=== PATIENT | male | born 1975 | race Caucasian/White ===

== ENCOUNTER 2021-02-10 18:59 | Inpatient (IN) | payer BC ==
[2021-02-10 21:46] LABS: Absolute Lymphocytes (CBC) 1.2 K/uL (0.7-4.9); Basophils % 0.5 % (0-1.3); Lymphocytes % 10.9 % (15.3-44.8); MPV 8.1 fL (7.6-11.3); RBC Red Blood Cell Count 5.86 M/uL (4.33-5.43)
[2021-02-10] MEDS ORDERED: MORPHINE 4 MG/ML SYR ONE (21:49)
[2021-02-10] MEDS ORDERED: ONDANSETRON 4 MG/2 ML VIAL ONE (21:50)
[2021-02-10] MEDS ORDERED: NA CHLORIDE 0.9% 1,000 ML ONE (21:50)
[2021-02-10 22:05] LABS: Albumin 4.5 g/dL (3.4-5.0); Bilirubin Direct 0.1 mg/dL (0-0.2); Bilirubin Total 0.6 mg/dL (0.2-1.0); Potassium 4.1 mmol/L (3.5-5.1); Protein, Total 8.4 g/dL (6.4-8.2)
[2021-02-10 22:09] LABS: Urine Blood 2+ (Negative); Urine Glucose Negative (Negative); Urine Protein 2+ (Negative); Urine Specific Gravity >=1.030 (1.005-1.030)
[2021-02-10] MEDS ORDERED: FENTANYL CITR 100 MCG/2 ML ONE (23:19)
--- NOTE | 2021-02-11 00:55 | ER ---
Nurse's Notes [facility] Name: Oliver Crespo Age: 45 yrs Sex: Male : 1975 Arrival Date: 02/10/2021 Time: 19:03 Bed 13 Private MD: Diagnosis: Small Bowel Obstruction Presentation: 02/10 20:08 Chief complaint: Patient states: Sever generalized ABD pain, shortness of breath, NVD, vg1 that started x3 days ago. Coronavirus screen: Client denies travel out of the [place] in the last 14 days. Ebola Screen: Patient negative for fever greater than or equal to 101.5 degrees Fahrenheit, and additional compatible Ebola Virus Disease symptoms. Initial Sepsis Screen:. Initial Sepsis Screen: Does the patient meet any 2 criteria? No. Patient's initial sepsis screen is negative. Does the patient have a suspected source of infection? No. Patient's initial sepsis screen is negative. Risk Assessment: Do you want to hurt yourself or someone else? Patient reports no desire to harm self or others. Onset of symptoms was February 07, 2021. 20:08 Method Of Arrival: Ambulatory vg1 20:08 Acuity: KAILASH 3 vg1 Historical: - Allergies: 20:14 No Known Allergies; vg1 - PMHx: 20:14 High Cholesterol; Hypertension; kidney cancer; vg1 - Immunization history:: Adult Immunizations up to date. - Social history:: Smoking status: Patient reports the use of cigarette tobacco products, smokes one-half pack cigarettes per day. Screenin:40 Abuse screen: Denies threats or abuse. Denies injuries from another. Nutritional rr5 screening: No deficits noted. Tuberculosis screening: No symptoms or risk factors identified. Fall Risk IV access (20 points). Total Melton Fall Scale indicates No Risk (0-24 pts). Assessment: 21:30 General: Appears in no apparent distress. comfortable, Behavior is calm, cooperative, rr5 appropriate for age. 21:30 Pain: Complains of pain in abdomen Pain currently is 10 out of 10 on a pain scale. rr5 Quality of pain is described as aching, Pain began gradually, Is intermittent. Neuro: Level of Consciousness is awake, alert, obeys commands, Oriented to person, place, time. Cardiovascular: Capillary refill < 3 seconds Patient's skin is warm and dry. Respiratory: Airway is patent Respiratory effort is even, unlabored, Respiratory pattern is regular, symmetrical. GI: Abdomen is round non-distended, Abd is soft and non tender Reports lower abdominal pain, upper abdominal pain, nausea, vomiting. : No signs and/or symptoms were reported regarding the genitourinary system. EENT: No signs and/or symptoms were reported regarding the EENT system. Derm: Skin is intact, is healthy with good turgor, Skin temperature is warm. Musculoskeletal: Capillary refill < 3 seconds. 22:40 Reassessment: Patient appears in no apparent distress at this time. Patient is alert, rr5 oriented x 3, equal unlabored respirations, skin warm/dry/pink. still in pain, ED provider aware with order made and carried out. 02/11 00:00 Reassessment: Patient appears in no apparent distress at this time. Patient is alert, rr5 oriented x 3, equal unlabored respirations, skin warm/dry/pink. awaiting for CT result. Vital Signs: 02/10 20:08 BP 183 / 122; Pulse 115; Resp 18; Temp 98.4(O); Pulse Ox 99% on R/A; Weight 99.79 kg; vg1 Height 5 ft. 11 in. (180.34 cm); Pain 10/10; 22:20 BP 142 / 95; Pulse 98; Resp 17; Pulse Ox 98% ; rr5 23:00 BP 141 / 90; Pulse 90; Resp 16; Pulse Ox 99% ; Pain 7/10; rr5 02/11 00:00 BP 155 / 95; Pulse 95; Resp 18; Pulse Ox 98% ; Pain 7/10; rr5 02:52 BP 158 / 78; Pulse 94; Resp 16; Pulse Ox 98% ; jm8 02/10 20:08 Body Mass Index 30.68 (99.79 kg, 180.34 cm) vg1 ED Course: 02/10 19:03 Patient arrived in ED. bp1 20:13 Triage completed. vg1 20:14 Arm band placed on Patient notified of wait time Emesis basin given. vg1 21:12 David Bautista PA is PHCP. jmm 21:12 Jose Moore MD is Attending Physician. jmm 21:16 Cirilo Lanier RN is Primary Nurse. rr5 21:30 Patient has correct armband on for positive identification. Bed in low position. Call rr5 light in reach. 21:40 Inserted saline lock: 20 gauge in right antecubital area, using aseptic technique. rr5 Blood collected. 02/11 00:54 Kareem Sapnn is Hospitalizing Provider. jmm 01:18 NGT: inserted 16 Fr. via left nare. verified placement of air over stomach, verified jm8 return of gastric contents, to intermittent suction. Returned gastric contents. Patient tolerated well. 02:53 Report given to Michelle MORALEZ 2nd floor. jm8 02:53 No provider procedures requiring assistance completed. jm8 03:42 Patient admitted, IV remains in place. jm8 Administered Medications: 02/10 21:40 Drug: NS 0.9% 1000 ml Route: IV; Rate: 1 bolus; Site: right antecubital; rr5 23:04 Follow up: Response: No adverse reaction; IV Status: Completed infusion; IV Intake: rr5 1000ml 21:40 Drug: Zofran (Ondansetron) 4 mg Route: IVP; Site: right antecubital; rr5 22:40 Follow up: Response: No adverse reaction rr5 21:42 Drug: morphine 4 mg {Note: rass 0.} Route: IVP; Site: right antecubital; rr5 22:40 Follow up: Response: No adverse reaction; Pain is unchanged, physician notified; RASS: rr5 Alert and Calm (0) 23:04 Drug: fentaNYL (PF) 50 mcg {Note: rass 0.} Route: IVP; Site: right antecubital; rr5 02/11 00:00 Follow up: Response: No adverse reaction; RASS: Alert and Calm (0) rr5 01:35 Drug: fentaNYL (PF) 50 mcg {Note: rass 0.} Route: IVP; Site: right antecubital; rr5 02:54 Follow up: Response: No adverse reaction; Pain is decreased jm8 01:35 Drug: Phenergan (promethazine) 12.5 mg Route: IVP; Site: right antecubital; rr5 02:55 Follow up: Response: No adverse reaction; Pain is decreased jm8 Intake: 02/10 23:04 IV: 1000ml; Total: 1000ml. rr5 Outcome: 02/11 00:55 Decision to Hospitalize by Provider. jmm 03:42 Admitted to Med/surg accompanied by nurse, via wheelchair, with chart, Report called to mayelin Trujillo 03:42 Condition: good 03:42 Instructed on the need for admit. 03:43 Patient left the ED. mayelin Signatures: David Bautista PA PA jmm Roque, Raymond, RN RN rr5 Erin Rm RN RN vg1 Emma Hale Joseph, RN RN [email or web address] Corrections: (The following items were deleted from the chart) 02/10 20:14 20:08 Acuity: KAILASH 2 vg1 vg1 20:18 20:08 Chief complaint: Patient states: Sever generalized ABD pain, NVD, that started x3 vg1 days ago. vg1
--- NOTE | 2021-02-11 00:56 | EDPHYS ---
Physician Documentation [facility] Name: Oliver Crespo Age: 45 yrs Sex: Male : 1975 Arrival Date: 02/10/2021 Time: 19:03 Bed 13 Private MD: Jose Singer HPI: 02/10 21:16 This 45 yrs old Male presents to ER via Ambulatory with complaints of jmm Abdominal Pain, Nausea/Vomiting/Diarrhea. 21:16 The patient presents with abdominal pain. Onset: The symptoms/episode began/occurred 3 jmm day(s) ago. The symptoms do not radiate. Associated signs and symptoms: Pertinent positives: nausea and vomiting, diarrhea. The symptoms are described as achy. Modifying factors: The symptoms are alleviated by nothing, the symptoms are aggravated by nothing. The patient has not experienced similar symptoms in the past. Historical: - Allergies: 20:14 No Known Allergies; vg1 - PMHx: 20:14 High Cholesterol; Hypertension; kidney cancer; vg1 - Immunization history:: Adult Immunizations up to date. - Social history:: Smoking status: Patient reports the use of cigarette tobacco products, smokes one-half pack cigarettes per day. ROS: 21:16 Constitutional: Negative for fever, chills, and weight loss, Cardiovascular: Negative jmm for chest pain, palpitations, and edema, Respiratory: Negative for shortness of breath, cough, wheezing, and pleuritic chest pain. 21:16 Abdomen/GI: Positive for abdominal pain, nausea and vomiting, diarrhea. 21:16 All other systems are negative. Exam: 21:16 Constitutional: This is a well developed, well nourished patient who is awake, alert, jmm and in no acute distress. Head/Face: atraumatic. Eyes: EOMI, no conjunctival erythema appreciated ENT: Moist Mucus Membranes Neck: Trachea midline, Supple Chest/axilla: Normal chest wall appearance and motion. Cardiovascular: Regular rate and rhythm. No edema appreciated Respiratory: Normal respirations, no respiratory distress appreciated 21:16 Back: Normal ROM Skin: General appearance color normal MS/ Extremity: Moves all extremities, no obvious deformities appreciated, no edema noted to the lower extremities Neuro: Awake and alert, normal gait Psych: Behavior is normal, Mood is normal, Patient is cooperative and pleasant 21:16 Abdomen/GI: Inspection: abdomen appears normal, Bowel sounds: normal, Palpation: soft, moderate abdominal tenderness. Vital Signs: 20:08 BP 183 / 122; Pulse 115; Resp 18; Temp 98.4(O); Pulse Ox 99% on R/A; Weight 99.79 kg; vg1 Height 5 ft. 11 in. (180.34 cm); Pain 10/10; 22:20 BP 142 / 95; Pulse 98; Resp 17; Pulse Ox 98% ; rr5 23:00 BP 141 / 90; Pulse 90; Resp 16; Pulse Ox 99% ; Pain 7/10; rr5 02/11 00:00 BP 155 / 95; Pulse 95; Resp 18; Pulse Ox 98% ; Pain 7/10; rr5 02:52 BP 158 / 78; Pulse 94; Resp 16; Pulse Ox 98% ; jm8 02/10 20:08 Body Mass Index 30.68 (99.79 kg, 180.34 cm) vg1 MDM: 02/10 21:18 Patient medically screened. [facility] 02/11 00:47 Data reviewed: vital signs, nurses notes. Counseling: I had a detailed discussion with aviva the patient and/or guardian regarding: the historical points, exam findings, and any diagnostic results supporting the discharge/admit diagnosis, lab results, radiology results, the need for further work-up and treatment in the hospital. 00:51 Data reviewed: radiologic studies, CT scan. ED course: I discussed the patient with Dr. aviva Montoya and Richard Wilson PA-C. Will admit to Dr. Spann's service.. 02/10 21:17 Order name: Basic Metabolic Panel [facility] 02/10 21:17 Order name: CBC with Diff [facility] 02/10 21:17 Order name: Hepatic Function [facility] 02/10 21:17 Order name: Lipase [facility] 02/10 21:47 Order name: CBC with Automated Diff; Complete Time: 21:54 EDMS 02/10 22:05 Order name: Basic Metabolic Panel; Complete Time: 22:10 EDNC 02/10 22:06 Order name: Liver (Hepatic) Function; Complete Time: 22:10 EDNC 02/10 22:06 Order name: Lipase; Complete Time: 22:10 EDNC 02/10 22:09 Order name: Urine Dipstick-Ancillary; Complete Time: 22:10 EDNC 02/10 22:57 Order name: CT Abd/Pelvis - IV Contrast Only [facility] 02/11 00:38 Order name: COVID-19 : Document "Date of Symptom Onset" if Symptomatic. mw2 02/11 00:57 Order name: CORONAVIRUS [facility] 02/11 01:36 Order name: Chest Single View XRAY [facility] 02/11 01:50 Order name: SARS-COV-2 RT PCR; Complete Time: 13:56 [facility] 02/10 21:17 Order name: IV Saline Lock; Complete Time: 21:42 [facility] 02/10 21:17 Order name: Labs collected and sent; Complete Time: 21:42 [facility] 02/10 21:26 Order name: Urine Dipstick-Ancillary (obtain specimen); Complete Time: 22:43 [facility] 02/11 00:36 Order name: NG Tube; Complete Time: 01:18 [facility] Administered Medications: 02/10 21:40 Drug: NS 0.9% 1000 ml Route: IV; Rate: 1 bolus; Site: right antecubital; rr5 23:04 Follow up: Response: No adverse reaction; IV Status: Completed infusion; IV Intake: rr5 1000ml 21:40 Drug: Zofran (Ondansetron) 4 mg Route: IVP; Site: right antecubital; rr5 22:40 Follow up: Response: No adverse reaction rr5 21:42 Drug: morphine 4 mg {Note: rass 0.} Route: IVP; Site: right antecubital; rr5 22:40 Follow up: Response: No adverse reaction; Pain is unchanged, physician notified; RASS: rr5 Alert and Calm (0) 23:04 Drug: fentaNYL (PF) 50 mcg {Note: rass 0.} Route: IVP; Site: right antecubital; 5 02/11 00:00 Follow up: Response: No adverse reaction; RASS: Alert and Calm (0) rr5 01:35 Drug: fentaNYL (PF) 50 mcg {Note: rass 0.} Route: IVP; Site: right antecubital; rr5 02:54 Follow up: Response: No adverse reaction; Pain is decreased jm8 01:35 Drug: Phenergan (promethazine) 12.5 mg Route: IVP; Site: right antecubital; rr5 02:55 Follow up: Response: No adverse reaction; Pain is decreased 8 Disposition: 16:52 Co-signature as Attending Physician, Jose Moore MD I agree with the assessment and [facility] plan of care. Disposition: 02/11/21 00:55 Hospitalization ordered by Kareem Spann for Inpatient Admission. Preliminary diagnosis is Small Bowel Obstruction. - Bed requested for Telemetry/MedSurg (Inpatient). - Status is Inpatient Admission. jm8 - Condition is Stable. - Problem is new. - Symptoms are unchanged. Signatures: Dispatcher [employer] EDJose Bland MD MD cha Mickail, Joel, PA PA Jessica Christianson, RN RN cg Cirilo Lanier RN RN rr5 Erin Rm, RN RN vg1 Kareem Chacko, RN RN jm8 Corrections: (The following items were deleted from the chart) 02:27 00:55 Hospitalization Ordered by Kareem Spann for Inpatient Admission. Preliminary cg diagnosis is Small Bowel Obstruction. Bed requested for Telemetry/MedSurg (Inpatient). Status is Inpatient Admission. Condition is Stable. Problem is new. Symptoms are unchanged. [facility] 03:43 02:27 02/11/2021 00:55 Hospitalization Ordered by Kareem Spann for Inpatient 8 Admission. Preliminary diagnosis is Small Bowel Obstruction. Bed requested for Telemetry/MedSurg (Inpatient). Status is Inpatient Admission. Condition is Stable. Problem is new. Symptoms are unchanged. cg
[2021-02-11] MEDS ORDERED: PROMETHAZINE INJ 25 MG/ML AMP ONE (01:48)
[2021-02-11] MEDS ORDERED: FENTANYL CITR 100 MCG/2 ML ONE (01:49)
[2021-02-11 03:40] VITALS: BMI 30.6
--- NOTE | 2021-02-11 03:45 | P.HP ---
Certification for Inpatient Patient admitted to: Inpatient With expected LOS: >2 Midnights Patient will require the following post-hospital care: None Practitioner: I am a practitioner with admitting privileges, knowledge of patient current condition, hospital course, and medical plan of care. Services: Services provided to patient in accordance with Admission requirements found in Title 42 Section 412.3 of the Code of Federal Regulations Patient History Date of Service: 02/11/21 Reason for admission: SBO History of Present Illness: Mr. Crespo is a 45 yo M with HTN, HLD, and h/o RCC s/p right partial nephrectomy here jay for 10/ abdominal pain progressively worsening since , and markedly worse since Tuesday. Pain migrates to epigastric to umblical area. He reports nausea, vomiting, night sweats, chills. He has not had a BM since Tuesday and is not passing gas. Pain is worse when eating. He smokes 1 ppd. ASt 63, ALT 123, alk phos 127. Allergies No Known Allergies Allergy (Verified 01/09/16 12:46) Home Medications: Gabapentin [Neurontin] 300 mg PO TID 01/09/16 Hydrocodone 10/APAP 325 [Webster 10/325] 1 tab PO Q6H PRN 01/09/16 Simvastatin 1 mg PO DAILY 01/09/16 lisinopriL [Prinivil] 20 mg PO DAILY 01/09/16 - Past Medical/Surgical History -: HTN -: HLD -: RCC -: right partial nephrectomy - Social History Smoking Status: Current every day smoker Counseled patient to stop smoking for: less than 10 minutes Smoking therapy provided: Yes Patient receptive to therapy: No Alcohol use: No CD- Drugs: No Caffeine use: No Place of Residence: Home Review of Systems General: Chills, Sweats, As per HPI Eyes: Unremarkable ENT: Unremarkable Respiratory: Unremarkable Cardiovascular: Unremarkable Gastrointestinal: Nausea, Vomiting, Abdominal Pain, Constipation, As per HPI Genitourinary: Unremarkable Musculoskeletal: Unremarkable Integumentary: Unremarkable Neurological: Unremarkable Lymphatics: Unremarkable Physical Examination - Physical Exam General: Alert, In no apparent distress, Oriented x3, Cooperative HEENT: Atraumatic, Normocephalic, PERRLA, Mucous membr. moist/pink, EOMI, Sclerae nonicteric Neck: Supple, 2+ carotid pulse no bruit, JVD not distended, No Thyromegaly, No LAD Respiratory: Clear to auscultation bilaterally, Normal air movement Cardiovascular: No edema, Normal pulses, Regular rate/rhythm, Normal S1 S2, No gallops, No rubs, No murmurs Capillary refill: <2 Seconds Gastrointestinal: Hypoactive, No ascites, No masses, No rebound, No guarding, Tenderness Musculoskeletal: No clubbing, No swelling, No contractures, No erythema, No tenderness, No warmth Integumentary: No rashes, No breakdown, No significant lesion, No tenderness/swelling, No erythema, No warmth, No cyanosis Neurological: Normal speech, Normal strength at 5/5 x4 extr, Normal tone, Sensation intact, Cranial nerves 3-12 intact, Normal affect Lymphatics: No axilla or inguinal lymphadenopathy - Studies Laboratory Data (last 24 hrs) 02/10/21 21:38: WBC 10.70, Hgb 14.5, Hct 43.0, Plt Count 364 02/10/21 21:38: Sodium 137, Potassium 4.1, BUN 21 H, Creatinine 1.14, Glucose 121 H, Total Bilirubin 0.6, AST 63 H, ALT 123 H, Alkaline Phosphatase 127 H, Lipase 101 Assessment and Plan - Problems (Diagnosis) (1) SBO (small bowel obstruction) Current Visit: Yes Status: Acute (2) HTN (hypertension) Current Visit: Yes Status: Chronic Qualifiers: Hypertension type: essential hypertension Qualified Code(s): I10 - Essential (primary) hypertension (3) HLD (hyperlipidemia) Current Visit: Yes Status: Chronic Qualifiers: Hyperlipidemia type: unspecified Qualified Code(s): E78.5 - Hyperlipidemia, unspecified - Plan surgery consulted continue IVF, NG tube, and pain management NPO, SCDs Discharge Plan: Home Plan to discharge in: 72 Hours - Advance Directives Does patient have a Living Will: No Does patient have a Durable POA for Healthcare: No - Code Status/Comfort Care Code Status Assessed: Yes (full code) Critical Care: No Time Spent Managing Pts Care (In Minutes): 70
[2021-02-11] MEDS: NA CHLORIDE 0.9% 1,000 ML IV SCH ×3 (04:05→23:47)
[2021-02-11] MEDS ORDERED: ACETAMINOPHEN 500 MG TAB PO PRN (04:05)
[2021-02-11 06:26] LABS: Albumin 3.9 g/dL (3.4-5.0); Bilirubin Total 0.5 mg/dL (0.2-1.0); Magnesium 2.2 mg/dL (1.8-2.4); Phosphorus 3.3 mg/dL (2.5-4.9); Potassium 3.5 mmol/L (3.5-5.1); Protein, Total 7.4 g/dL (6.4-8.2)
[2021-02-11 06:30] LABS: Basophils % 0.6 % (0-1.3); Hematocrit 37.8 % (39.6-49.0); Lymphocytes % 24.9 % (15.3-44.8); MPV 8.4 fL (7.6-11.3); RBC Red Blood Cell Count 5.14 M/uL (4.33-5.43)
[2021-02-11 07:18] LABS: Blood Morphology Comment NOT SEEN (NOT SEEN); Platelet Estimate ADEQ
--- NOTE | 2021-02-11 08:43 | RAD REPORT ---
EXAM DESCRIPTION: RAD - Chest Single View - 02/11/2021 2:14 am CLINICAL HISTORY: NGT placement COMPARISON: November 2015 TECHNIQUE: AP portable chest image was obtained 02/11/2021 2:14 am . FINDINGS: NG/OG tube has been placed. The tip appears to extend below the diaphragm but is too poorl y visualized to allow all accurate positioning. Exam can be repeated with the image is centered on th e upper abdomen. Heart and vasculature are normal. No measurable pleural effusion and no pneumothorax . No acute bony abnormality seen. No acute aortic findings suspected. IMPRESSION: NG/OG placement appearing to extend below the diaphragm but too poorly visualized to all ow accurate assessment. The repeat KUB film centered on the diaphragm would be recommended for better visualization of the tu be.
[2021-02-11] MEDS: MORPHINE 4 MG/ML SYR IV PRN ×3 (09:04→22:08)
[2021-02-11] MEDS: ONDANSETRON 4 MG/2 ML VIAL IV PRN ×3 (09:04→22:09)
--- NOTE | 2021-02-11 12:32 | RAD REPORT ---
EXAM DESCRIPTION: CT - Abdomen Pelvis W Contrast - 02/11/2021 7:08 am RadLex: CT ABDOMEN PELVIS WITH IV CONTRAST CLINICAL HISTORY: ABD PAIN. COMPARISON: None. TECHNIQUE: CT of the abdomen and pelvis was performed following intravenous administration of iodina martine contrast. Arterial phase images through the abdomen, and arterial and portal venous phase images through the abdomen and pelvis were obtained. Oral contrast was not administered. Axial, coronal, and sagittal soft tissue window reconstructions were created and sent to PACS. This exam was performed according to our departmental dose-optimization program, which includes autom ated exposure control, adjustment of the mA and/or kV according to patient size and/or use of iterati ve reconstruction technique. FINDINGS: Thoracic: No significant abnormality. Hepatobiliary: No concerning hepatic lesion identified. The hepatic and portal veins are patent. The gallbladder is unremarkable. Trace central intrahepatic biliary ductal prominence, nonspecific. Katie l caliber common bile duct. Pancreas: Unremarkable. Spleen: Unremarkable. Gastrointestinal: Beginning in the right upper abdomen small bowel, there is moderate fluid and gas f illed dilation of small bowel loops, with a transition point in the central abdomen in the mid to dis mishel ileum, around axial image 59. No pneumatosis, free air, or fluid collections are identified. The small bowel distal to this point (the distal ileum) is decompressed. No evidence of perienteric infla mmation. The appendix is normal. Small amount of fecal material throughout the colon. Adrenals: No abnormality identified in either adrenal gland. Renal: Tiny heterogeneous lesion at the superior pole of the right kidney containing some fat measure s 1.3 cm. Punctate nonobstructive calculus in the mid to upper right kidney. Inferior right renal 1.2 cm hypodensity, too small to accurately characterize but statistically likely a cyst. Tiny fat-conta ining lesion in the mid left kidney measures 0.6 cm. Small nonobstructive calculus in the mid left ki dney measures 0.4 cm. No hydronephrosis bilaterally. Bladder/Reproductive: Unremarkable appearance of the urinary bladder by CT technique. Vascular/Lymphatics: No lymphadenopathy identified by CT size criteria. Abdominal aorta is normal in caliber. Moderate mixed atherosclerosis. The major visceral vessels are patent. Musculoskeletal: No concerning osseous lesion identified. Fluid / peritoneum: Trace free fluid in pelvis. No free intraperitoneal air identified. IMPRESSION 1. Moderate dilation of small bowel loops with a transition point in the central abdome n, suggestive of small bowel obstruction. 2. Two tiny bilateral renal angiomyolipomas. Mild bilateral nonobstructive nephrolithiasis. Electronically signed by: Ama Renee MD 02/11/2021 12:26 AM CDT Due to temporary technical issues with the PACS/Fluency reporting system, reports are being signed by the in house radiologists without review as a courtesy to insure prompt reporting. The interpreting radiologist is fully responsible for the content of the report.
[2021-02-11] MEDS ORDERED: KCL 20 MEQ/100 mL IVPB 20 MEQ/100 ML BAG IV SCH (14:00)
--- NOTE | 2021-02-11 17:17 | P.PN ---
Subjective Date of Service: 02/11/21 Chief Complaint: SBO Patient reports discomfort from the NGT. NG-tube with significant output.. He denies any abdominal pain. No bowel movement yet. Physical Examination - Vital Signs Temperature: 98.5 F Blood Pressure: 148/92 Pulse: 94 Respirations: 16 Pulse Ox (%): 96 - Physical Exam General: Alert, In no apparent distress HEENT: Other (NG-tube to suction) Neck: Supple, JVD not distended Respiratory: Clear to auscultation bilaterally, Normal air movement Cardiovascular: No edema, Regular rate/rhythm, Normal S1 S2 Gastrointestinal: Soft and benign, Non-distended, No tenderness, Hyperactive Musculoskeletal: No swelling, No tenderness Integumentary: No rashes, No erythema Neurological: Normal speech, Normal strength at 5/5 x4 extr - Studies Laboratory Data (last 24 hrs) 02/10/21 21:38: WBC 10.70, Hgb 14.5, Hct 43.0, Plt Count 364 02/10/21 21:38: Sodium 137, Potassium 4.1, BUN 21 H, Creatinine 1.14, Glucose 121 H, Total Bilirubin 0.6, AST 63 H, ALT 123 H, Alkaline Phosphatase 127 H, Lipase 101 Assessment And Plan - Current Problems (Diagnosis) (1) SBO (small bowel obstruction) Current Visit: Yes Status: Acute (2) History of partial nephrectomy Current Visit: Yes Status: Acute (3) History of renal cell carcinoma Current Visit: Yes Status: Acute (4) HLD (hyperlipidemia) Current Visit: Yes Status: Chronic Qualifiers: Hyperlipidemia type: unspecified Qualified Code(s): E78.5 - Hyperlipidemia, unspecified (5) HTN (hypertension) Current Visit: Yes Status: Chronic Qualifiers: Hypertension type: essential hypertension Qualified Code(s): I10 - Essential (primary) hypertension - Plan Continue supportive measures. NG-tube to suction. Pain management as needed. General surgery to evaluate. Serial abdominal examination. Hydrate with D5 NS. Monitor and optimize electrolytes. Empiric IV antibiotics.
--- NOTE | 2021-02-11 18:18 | CON ---
Date of Consultation: 02/11/2021 Reason For Service: Small bowel obstruction. History Of Present Illness: This is the case of a 45-year-old patient, admitted to the hospital [facility] with small bowel obstruction of unknown origin. He has history of surgery in the past with a right flank incision from partial nephrectomy. He was eating yesterday. He blamed that eating at [employer], after that he started to feel this pain. He denies any dysuria, hematuria, hematoch ezia, melena in the past, although he stated right now nausea, vomiting, chills. Allergies: NONE. Medications: Include Neurontin, hydrocodone, lisinopril, simvastatin. Past Medical History: Medical problems include hypertension, partial nephrectomy, renal cell carcino ma. Social History: He smokes a pack a day, he advised not to do so. He does not drink alcohol. Family History: Noncontributory. Review of Systems: As above. Ten points otherwise unremarkable. Physical Examination: General: The patient is awake, alert. HEENT: Pupils are equal and reactive. Anicteric. Neck: Supple. Chest: Clear. Abdomen: Softly distended. Mild generalized tenderness. No rebound tenderness. Extremities: Good capillary refill. Laboratory Data: Blood work shows a WBC count of 10.7, hemoglobin of 14.5. Creatinine is 1.4, BUN 2 1, ALT 123, alkaline phosphate 127. UA; blood 2+, nitrate negative. CAT scan of the abdomen and pel vis interpreted by Dr. Brown as moderate dilatation of the small bowel loops with transition point in the central abdomen suggestive of small bowel obstruction. Assessment: It is a 45-year-old patient with small bowel obstruction of unknown origin. The patient states he felt better, he is passing some gas, but the NG tube is still producing significant amount of fluid, so we recommend keeping the NG tube, ambulation, bowel rest, repeat the x-rays in the morn ing and he understands that if he does not improve conservatively, there are options of laparotomy po ssible bowel resection, possible ostomy with benefits, alternatives, and risks fully explained, altho ugh he prefers to try conservative treatment for least the next 48 hours. RL/MYRON Voice ID: [id number] Report ID: [id number]
[2021-02-11] MEDS: CEFTRIAXONE/SWI 1gm 1 GM/10 ML SYR IVP SCH (18:40)
[2021-02-12] MEDS: METRONIDAZOLE 500mg IVPB 500 MG/100 ML BAG IV SCH ×3 (00:46→16:04)
[2021-02-12] MEDS: ONDANSETRON 4 MG/2 ML VIAL IV PRN ×4 (04:20→21:24)
[2021-02-12] MEDS: MORPHINE 4 MG/ML SYR IV PRN (04:20)
[2021-02-12 05:56] LABS: Absolute Lymphocytes (CBC) 1.3 K/uL (0.7-4.9); Basophils % 0.7 % (0-1.3); Hematocrit 35.5 % (39.6-49.0); Lymphocytes % 16.4 % (15.3-44.8); MPV 8.4 fL (7.6-11.3); RBC Red Blood Cell Count 4.79 M/uL (4.33-5.43)
[2021-02-12 06:07] LABS: ALT/SGPT 61 U/L (12-78); AST/SGOT 24 U/L (15-37); Albumin 3.7 g/dL (3.4-5.0); Alkaline Phosphatase 94 U/L (45-117); BUN Blood Urea Nitrogen 17 mg/dL (7-18); Bicarbonate 25 mmol/L (21-32); Bilirubin Total 0.4 mg/dL (0.2-1.0); Glucose Level 83 mg/dL (74-106); HDL Cholesterol 23 mg/dL (40-60); LDL Cholesterol, Calculated 119 (<130); Phosphorus 2.6 mg/dL (2.5-4.9); Potassium 3.4 mmol/L (3.5-5.1); Sodium Level 143 mmol/L (136-145)
[2021-02-12] MEDS ORDERED: KCL 20 MEQ/100 mL IVPB 20 MEQ/100 ML BAG IV SCH ×2 (07:00→09:00)
[2021-02-12] MEDS: CEFTRIAXONE/SWI 1gm 1 GM/10 ML SYR IVP SCH (07:55)
[2021-02-12] MEDS ORDERED: SODIUM CHLORIDE 0.9% 10ML INJ IV PRN (09:21)
[2021-02-12] MEDS: MORPHINE 4 MG/ML SYR IV SCH ×5 (10:05→21:25)
[2021-02-12] MEDS: NA CHLORIDE 0.9% 1,000 ML IV SCH (10:13)
--- NOTE | 2021-02-12 10:43 | RAD REPORT ---
EXAM DESCRIPTION: RAD - Abdomen W Erect - 02/12/2021 10:30 am CLINICAL HISTORY: Abdominal pain FINDINGS: Free air is not seen beneath diaphragm. Nasogastric tube within the stomach. Small bowel caliber has diminished since prior CAT scan but is still dilated. Air within the colon is diminished. Overall there has been improvement in the small bowel obstruction. Continued follow up recommended
--- NOTE | 2021-02-12 16:04 | PN ---
Date of Progress Note: 02/12/2021 Reason For Service: Small bowel obstruction. Subjective: The patient is doing better. No shortness of breath. No chest pain. No fever. No hem aturia. No dysuria. The patient is passing flatus and bowel movement. Review of Systems: Ten points otherwise unremarkable. Objective: Chest: Clear. Abdomen: Soft and depressible. No guarding or rebound. Extremities: Good capillary refill. The NG tube is minimal. Laboratory Data: An x-ray also reviewed, shows improvement of small bowel findings. Plan: Plan will be to discontinue NG tube, start clear liquid diet, ambulation. If he deteriorates, then we will proceed with small bowel series. 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 We are valerie wyman to find a possible etiology of this event. RL/MODL Voice ID: [id number] Report ID: [id number]
--- NOTE | 2021-02-12 16:36 | P.PN ---
Subjective Date of Service: 02/12/21 Chief Complaint: SBO NG tube removed today. Patient placed on clear liquid diet He denies any abdominal pain. He reports passing flatus and had a bowel movement this morning. Physical Examination - Vital Signs Temperature: 98.3 F Blood Pressure: 128/71 Pulse: 80 Respirations: 17 Pulse Ox (%): 97 - Physical Exam General: Alert, In no apparent distress Neck: JVD not distended Respiratory: Clear to auscultation bilaterally, Normal air movement Cardiovascular: No edema, Regular rate/rhythm, Normal S1 S2 Gastrointestinal: Normal bowel sounds, Soft and benign, Non-distended, No tenderness Musculoskeletal: No swelling, No tenderness Integumentary: No rashes Neurological: Normal strength at 5/5 x4 extr Assessment And Plan - Current Problems (Diagnosis) (1) SBO (small bowel obstruction) Current Visit: Yes Status: Acute (2) History of partial nephrectomy Current Visit: Yes Status: Acute (3) History of renal cell carcinoma Current Visit: Yes Status: Acute (4) HLD (hyperlipidemia) Current Visit: Yes Status: Chronic Qualifiers: Hyperlipidemia type: unspecified Qualified Code(s): E78.5 - Hyperlipidemia, unspecified (5) HTN (hypertension) Current Visit: Yes Status: Chronic Qualifiers: Hypertension type: essential hypertension Qualified Code(s): I10 - Essential (primary) hypertension - Plan Continue supportive measures. NG-tube removed. Patient started on clear liquid diet. Pain management as needed. General surgery Dr. Montoya is following. Monitor and optimize electrolytes. Empiric IV antibiotics.
[2021-02-12] MEDS: NS KCL 20MEQ 20 MEQ/1,000 ML BAG IV SCH (16:50)
[2021-02-12] MEDS ORDERED: POTASSIUM CL SA 10 MEQ TAB PO ONE (21:02)
[2021-02-12] MEDS: PANTOPRAZOLE 40 MG INJ IVP SCH (21:24)
[2021-02-13] MEDS: METRONIDAZOLE 500mg IVPB 500 MG/100 ML BAG IV SCH ×2 (01:38→10:24)
[2021-02-13] MEDS: MORPHINE 4 MG/ML SYR IV SCH ×3 (02:00→10:25)
[2021-02-13] MEDS: ONDANSETRON 4 MG/2 ML VIAL IV PRN (03:56)
[2021-02-13 05:35] LABS: Absolute Lymphocytes (CBC) 1.8 K/uL (0.7-4.9); Basophils % 1.3 % (0-1.3); Hematocrit 29.7 % (39.6-49.0); Lymphocytes % 37.4 % (15.3-44.8); MPV 7.9 fL (7.6-11.3); RBC Red Blood Cell Count 3.96 M/uL (4.33-5.43)
[2021-02-13 06:10] LABS: BUN Blood Urea Nitrogen 9 mg/dL (7-18); Bicarbonate 23 mmol/L (21-32); Glucose Level 72 mg/dL (74-106); Potassium 3.7 mmol/L (3.5-5.1); Sodium Level 142 mmol/L (136-145)
[2021-02-13] MEDS: NS KCL 20MEQ 20 MEQ/1,000 ML BAG IV SCH (06:20)
[2021-02-13] MEDS ORDERED: POTASSIUM CL SA 10 MEQ TAB PO ONE (09:00)
[2021-02-13] MEDS: CEFTRIAXONE/SWI 1gm 1 GM/10 ML SYR IVP SCH (10:24)
[2021-02-13] MEDS: PANTOPRAZOLE 40 MG INJ IVP SCH (10:25)
[2021-02-13 11:03] VITALS: O2SAT 98
--- NOTE | 2021-02-13 13:34 | P.DS ---
Admission Date: 02/11/21 Discharge Date: 02/13/21 Disposition: ROUTINE DISCHARGE Discharge Condition: FAIR Reason for Admission: SBO Consultations: General surgery-Dr. Montoya. - Problems (1) SBO (small bowel obstruction) Status: Acute (2) History of partial nephrectomy Status: Acute (3) History of renal cell carcinoma Status: Acute (4) HLD (hyperlipidemia) Status: Chronic Qualifiers: Hyperlipidemia type: unspecified Qualified Code(s): E78.5 - Hyperlipidemia, unspecified (5) HTN (hypertension) Status: Chronic Qualifiers: Hypertension type: essential hypertension Qualified Code(s): I10 - Essential (primary) hypertension Brief History of Present Illness: 45-year-old gentleman with a history of hypertension, hyperlipidemia, history of renal cell carcinoma status post right partial nephrectomy presented with severe abdominal pain. Patient also reported nausea vomiting and no bowel movement for a few days. CT abdomen and pelvis done in the emergency department suggested small-bowel obstruction with transition point. Patient was hospitalized for further management. Hospital Course: Patient admitted to the medical floor and treated conservatively with IV hydration, NG tube to suction, serial abdominal examination and kept NPO. He was seen in consultation by general surgery-Dr. Montoya. Patient's symptoms improved within 48 hours. NGT subsequently removed after repeat KUB showed improvement in the bowel dilatation. Patient tolerated clear liquid diet, had several bowel movements and was passing flatus. Today patient has no complain, he has clinically improved, SBO resolved. He is stable for discharge. He will follow with Dr. Montoya within 1 week as an outpatient. Vital Signs/Physical Exam: Temp Pulse Resp BP Pulse Ox 97.2 F 71 16 124/59 L 99 02/13/21 08:00 02/13/21 08:00 02/13/21 08:00 02/13/21 08:00 02/13/21 08:00 General: Alert, In no apparent distress, Oriented x3 HEENT: Mucous membr. moist/pink Neck: JVD not distended Respiratory: Clear to auscultation bilaterally, Normal air movement Cardiovascular: No edema, Regular rate/rhythm, Normal S1 S2 Gastrointestinal: Normal bowel sounds, Soft and benign, Non-distended, No tenderness Musculoskeletal: No swelling Integumentary: No rashes Neurological: Normal strength at 5/5 x4 extr Laboratory Data at Discharge: WBC 4.70 K/uL (4.3-10.9) D 02/13/21 05:07 Hgb 9.7 g/dL (13.6-17.9) L 02/13/21 05:07 Hct 29.7 % (39.6-49.0) L D 02/13/21 05:07 Plt Count 293 K/uL (152-406) 02/13/21 05:07 Sodium 142 mmol/L (136-145) 02/13/21 05:07 Potassium 3.7 mmol/L (3.5-5.1) 02/13/21 05:07 BUN 9 mg/dL (7-18) 02/13/21 05:07 Creatinine 0.73 mg/dL (0.55-1.3) 02/13/21 05:07 Glucose 72 mg/dL (74-106) L 02/13/21 05:07 Phosphorus 2.6 mg/dL (2.5-4.9) 02/12/21 05:20 Magnesium 2.0 mg/dL (1.8-2.4) 02/12/21 05:20 Total Bilirubin 0.4 mg/dL (0.2-1.0) 02/12/21 05:20 AST 24 U/L (15-37) 02/12/21 05:20 ALT 61 U/L (12-78) 02/12/21 05:20 Alkaline Phosphatase 94 U/L (45-117) 02/12/21 05:20 Triglycerides 252 mg/dL (<150) H 02/12/21 05:20 Cholesterol 192 mg/dL (<200) 02/12/21 05:20 HDL Cholesterol 23 mg/dL (40-60) L 02/12/21 05:20 Cholesterol/HDL Ratio 8.35 02/12/21 05:20 Lipase 101 U/L (73-393) 02/10/21 21:38 Home Medications: NK [No Home Meds] 02/11/21 Physician Discharge Instructions: PROBLEM: Small bowel obstruction GOAL: Clear understanding of disease process INSTRUCTIONS: Diet: Regular Activity: As tolerated If you have any questions regarding your stay call [phone] If your symptoms worsen call 911 or go to the ED. Diet: Regular (Advance from liquid diet to soft and then solid diet over the next 3 days.) Activity: Ad martha Followup: Tomer Montoya MD [ACTIVE - CAN ADMIT] - 1 Week (Call to make an appointment. ) NONE,NONE [Primary Care Provider] - Time spent managing pt's care (in minutes): 33
[2021-02-13 14:18] VITALS: BP 149/75; TEMP 96.8
== END 2021-02-13 14:52 | disposition home or self-care (01) | DRG 390 ==
LOC: ER 18:59 → ERHOLD 02-11 02:22 → 2ND 02-11 03:14
PROVIDERS: ADMIT Internal Medicine; ATTEND Internal Medicine
DX: K56.609 Unspecified intestinal obstruction, unspecified as to partial versus complete obstruction (principal); I10 Essential (primary) hypertension; F17.210 Nicotine dependence, cigarettes, uncomplicated; E78.5 Hyperlipidemia, unspecified; Z79.899 Other long term (current) drug therapy; Z90.49 Acquired absence of other specified parts of digestive tract; Z85.528 Personal history of other malignant neoplasm of kidney; Z20.822 Contact with and (suspected) exposure to COVID-19
CPT/HCPCS: 36415; 71045; 74019; 74177; 80048; 80053; 80061; 80076; 81003; 82271; 83690; 83735; 83986; 84100; 84132; 85025; 94760; 96361; 96374; 96375; 99285; C9113; J0696; J2405; J2550; J3010; J3480; J7030; Q9967; U0003